=== PATIENT | female | born 1995 | race Caucasian/White ===

== ENCOUNTER 2018-09-26 10:01 | Emergency (ER) | payer SELFPAY ==
[2018-09-26 10:18] VITALS: BP 111/70
--- NOTE | 2018-09-26 10:43 | UC ---
Complaint Female HPI - HPI Summary HPI Summary: Patient has had two days of increased frequency of urination, urgency and burning. period is 2 days late - History Of Current Complaint Chief Complaint: UCGU Stated Complaint: URINARY COMPLAINT Time Seen by Provider: 09/26/18 10:16 Hx Obtained From: Patient Hx Last Menstrual Period: 08/2018 ?: No - ua neg Onset/Duration: Sudden Onset, Lasting Days Timing: Constant Severity Initially: Mild Severity Currently: Moderate Pain Intensity: 6 - Allergies/Home Medications Allergies/Adverse Reactions: Allergies Allergy/AdvReac Type Severity Reaction Status Date / Time No Known Allergies Allergy Verified 09/26/18 10:13 Home Medications: Home Medications Acetaminophen [Tylenol Extra Strength] 500 mg PO Q4HR PRN 09/26/18 [History Confirmed 09/26/18] PMH/Surg Hx/FS Hx/Imm Hx Previously Healthy: Yes - Surgical History Surgical History: Yes Surgery Procedure, Year, and Place: oral surgery - Family History Known Family History: Negative: Cardiac Disease, Hypertension - Social History Alcohol Use: None Substance Use Type: None Smoking Status (MU): Never Smoked Tobacco Review of Systems All Other Systems Reviewed And Are Negative: Yes Constitutional: Positive: Negative Skin: Positive: Negative Eyes: Positive: Negative ENT: Positive: Negative Respiratory: Positive: Negative Cardiovascular: Positive: Negative Gastrointestinal: Positive: Negative Genitourinary: Positive: Dysuria, Hematuria, Frequency, Urgency Motor: Positive: Negative Neurovascular: Positive: Negative Musculoskeletal: Positive: Negative Neurological: Positive: Negative Psychological: Positive: Negative Is Patient Immunocompromised?: No Physical Exam Triage Information Reviewed: Yes Appearance: Well-Appearing, Well-Nourished, Pain Distress Vital Signs: Initial Vital Signs Temp 99.6 F 09/26/18 10:14 Pulse 91 09/26/18 10:14 Resp 18 09/26/18 10:14 BP 111/70 09/26/18 10:14 Pulse Ox 100 09/26/18 10:14 Vital Signs Reviewed: Yes Eye Exam: Normal ENT Exam: Normal Dental Exam: Normal Neck exam: Normal Respiratory Exam: Normal Cardiovascular Exam: Normal Abdominal Exam: Normal Abdomen Description: Positive: Nontender, No Organomegaly, Soft, CVA Tenderness (R) - neg, CVA Tenderness (L) - neg Bowel Sounds: Positive: Present Musculoskeletal Exam: Normal Neurological Exam: Normal Psychological Exam: Normal Skin Exam: Normal Complaint Female Dx - Course Course Of Treatment: hx obtained, exam performed ,meds reviewed, UA pos, treated for UTI, urine preg neg - Differential Dx/Diagnosis Differential Diagnosis/HQI/PQRI: Urinary Tract Infection Provider Diagnoses: UTI Discharge - Sign-Out/Discharge Documenting (check all that apply): Patient Departure All imaging exams completed and their final reports reviewed: No Studies - Discharge Plan Condition: Stable Disposition: HOME Prescriptions: Cephalexin CAP* [Keflex CAP*] 500 mg PO BID #14 cap Patient Education Materials: Urinary Tract Infection in Women (DC) Referrals: No Primary Care Phys,NOPCP [Primary Care Provider] - Additional Instructions: 1. increase fluid intake 2. Take the medication as prescribed. 3. FOllow up as needed. - Billing Disposition and Condition Condition: STABLE Disposition: Home
--- NOTE | 2018-09-28 07:15 | UC ---
- Progress Note Progress Note: + E. coli On keflex await sensitivity ljj 09/28/18 Discharge - Sign-Out/Discharge Documenting (check all that apply): Post-Discharge Follow Up All imaging exams completed and their final reports reviewed: No Studies - Discharge Plan Condition: Stable Disposition: HOME Prescriptions: Cephalexin CAP* [Keflex CAP*] 500 mg PO BID #14 cap Patient Education Materials: Urinary Tract Infection in Women (DC) Referrals: No Primary Care Phys,NOPCP [Primary Care Provider] - Additional Instructions: 1. increase fluid intake 2. Take the medication as prescribed. 3. FOllow up as needed. - Billing Disposition and Condition Condition: STABLE Disposition: Home
== END 2018-09-26 10:44 | disposition home or self-care (01) ==
LOC: UCCORT 10:01
DX: N39.0 Urinary tract infection, site not specified (principal)
CPT/HCPCS: 81003; 84702; 87077; 87086; 87186; 99202; G0463